=== PATIENT | male | born 1975 ===

== ENCOUNTER 2022-11-08 08:19 | Day surgery (SDC) | payer OTHER ==
[~2022-11-08] VITALS: Ht 172.7 cm; Wt 122.5 kg
[~2022-11-08 08:19] MED LIST: HYDROCHLOROTH12.5 MG PO; VASOTEC20 MG PO
[2022-11-08] MEDS ORDERED: PERCOCET 5-3251 EACH PO (12:49)
== END 2022-11-08 16:30 | disposition home or self-care (01) ==
LOC: CIR.AMB 08:19
PROVIDERS: ATTEND Surgery
DX: C73 Malignant neoplasm of thyroid gland (principal); Z20.822 Contact with and (suspected) exposure to COVID-19; I10 Essential (primary) hypertension; F17.210 Nicotine dependence, cigarettes, uncomplicated; F12.90 Cannabis use, unspecified, uncomplicated